=== PATIENT | male | born 2000 | race Caucasian/White ===

== ENCOUNTER 2020-08-30 10:51 | Outpatient (CLI) | payer OTHER ==
[~2020-08-30] VITALS: Ht 177.8 cm; Wt 80.0 kg
[2020-08-30] VITALS (8 sets, daily range): BP systolic 114–138; BP diastolic 55–70
[2020-08-30] MEDS ORDERED: ACETAMINOPHEN 650MG PO PRIOR TO INFUSION PO ONE (11:00)
[2020-08-30] MEDS ORDERED: NS 1,000 ML IV SCH (11:00)
[2020-08-30] MEDS ORDERED: inFLIXimab INJECTION 400 MG in NS 210 ML IV ONE (11:00)
[2020-08-30] MEDS ORDERED: diphenhydrAMINE 25MG PO PRIOR TO INFUSION PO ONE (11:00)
[2020-08-30] MEDS ORDERED: DOXY-350 PO (11:58)
== END 2020-08-30 14:45 | disposition home or self-care (01) ==
LOC: M INFU 10:51
PROVIDERS: ATTEND Internal Medicine Gastroenterology
DX: K51.90 Ulcerative colitis, unspecified, without complications (principal)
CPT/HCPCS: 96413; 96415; J1745

== ENCOUNTER 2020-10-25 11:52 | Outpatient (CLI) | payer OTHER ==
[~2020-10-25] VITALS: Ht 177.8 cm; Wt 80.0 kg
[2020-10-25] VITALS (7 sets, daily range): BP systolic 96–130; BP diastolic 50–61
[~2020-10-25 11:52] MED LIST: DOXY-350 PO
[2020-10-25] MEDS ORDERED: diphenhydrAMINE 25MG PO PRIOR TO INFUSION PO ONE (14:00)
[2020-10-25] MEDS ORDERED: inFLIXimab INJECTION 400 MG in NS 210 ML IV ONE (14:00)
[2020-10-25] MEDS ORDERED: ACETAMINOPHEN 650MG PO PRIOR TO INFUSION PO ONE (14:00)
[2020-10-25] MEDS ORDERED: NS 1,000 ML IV SCH (14:00)
== END 2020-10-25 16:55 | disposition home or self-care (01) ==
LOC: M INFU 11:52
PROVIDERS: ATTEND Internal Medicine Gastroenterology
DX: K51.90 Ulcerative colitis, unspecified, without complications (principal)
CPT/HCPCS: 96413; 96415; J1745

== ENCOUNTER 2020-12-20 11:08 | Outpatient (CLI) | payer OTHER ==
[2020-12-20] VITALS (7 sets, daily range): BP systolic 116–134; BP diastolic 53–63
[~2020-12-20] VITALS: Ht 177.8 cm; Wt 80.0 kg
[~2020-12-20 11:08] MED LIST changes: +ACETAMINOPHEN 650MG PO PRIOR TO INFUSION PO ONE; +NS 1,000 ML IV SCH; +diphenhydrAMINE 25MG PO PRIOR TO INFUSION PO ONE; +inFLIXimab INJECTION 400 MG in NS 210 ML IV ONE
== END 2020-12-20 14:00 | disposition home or self-care (01) ==
LOC: M INFU 11:08
PROVIDERS: ATTEND Internal Medicine Gastroenterology
DX: K51.90 Ulcerative colitis, unspecified, without complications (principal)
CPT/HCPCS: 96413; 96415; J1745

== ENCOUNTER → 2021-01-24 | Outpatient (CLI) | payer OTHER ==
[~2021-01-24] MED LIST changes: -ACETAMINOPHEN 650MG PO PRIOR TO INFUSION PO ONE; -NS 1,000 ML IV SCH; -diphenhydrAMINE 25MG PO PRIOR TO INFUSION PO ONE; -inFLIXimab INJECTION 400 MG in NS 210 ML IV ONE
== END ==
LOC: M LAB 13:34
PROVIDERS: ATTEND Internal Medicine Gastroenterology
DX: K51.30 Ulcerative (chronic) rectosigmoiditis without complications (principal)

== ENCOUNTER 2021-04-11 11:10 | Outpatient (CLI) | payer OTHER ==
[2021-04-11] VITALS (7 sets, daily range): BP systolic 119–137; BP diastolic 57–68
[~2021-04-11] VITALS: Ht 177.8 cm; Wt 80.0 kg
[~2021-04-11 11:10] MED LIST changes: +ACETAMINOPHEN 650MG PO PRIOR TO INFUSION PO ONE; +NS 1,000 ML IV SCH; +diphenhydrAMINE 25MG PO PRIOR TO INFUSION PO ONE; +inFLIXimab INJECTION 400 MG in NS 210 ML IV ONE
== END 2021-04-11 14:15 | disposition home or self-care (01) ==
LOC: M INFU 11:10
PROVIDERS: ATTEND Internal Medicine Gastroenterology
DX: K51.90 Ulcerative colitis, unspecified, without complications (principal)
CPT/HCPCS: 96413; 96415; J1745